=== PATIENT | female | born 1980 | race Caucasian/White ===

== ENCOUNTER → 2018-10-03 10:30 | Outpatient (CLI) | payer BC, SELFPAY ==
--- NOTE | 2018-10-03 10:41 | US_ITS ---
US breast LT complete INDICATION: Nipple discharge ORDERING PHYSICIAN: Stephanie Solis APRN PATIENT AGE: 37 years COMPARISON: None TECHNIQUE: Left breast ultrasound with axilla FINDINGS: No sonographic abnormalities are evident. IMPRESSION: Negative left breast ultrasound. Follow-up suggested as clinically warranted. If there is indeed bloody nipple discharge then, mammography may be of further value. MRI may ultimately be needed if there is persistent nipple discharge A- ultrasound does not exclude the possibility of malignancy. Any palpable nodules should be managed on clinical basis (A letter has been sent to the patient regarding results of the study.)
== END ==
PROVIDERS: PCP Family Medicine; Visit Provider Nurse Practitioner Family
DX: N64.52 Nipple discharge (principal)
CPT/HCPCS: 76641

== ENCOUNTER 2021-10-18 10:10 | Emergency (ER) | payer BC, SELFPAY ==
[2021-10-18 10:20] VITALS: BP 154/91; PULSE 94; RESP 17; TEMP 37; O2SAT 98; BMI 37.2
--- NOTE | 2021-10-18 10:36 | XR_ITS ---
PROCEDURE INFORMATION: Exam: XR Thoracic Spine Exam date and time: 10/18/2021 10:51 AM Age: 40 years old Clinical indication: Pain in thoracic spine; Without myelpathy or radiculopathy; Additional info: Pain, heavy lifting yest TECHNIQUE: Imaging protocol: XR of the thoracic spine. Views: 2 views. COMPARISON: CR CXR CHEST(2 VIEWS-NOT PORTABLE) 02/08/2017 10:54 AM FINDINGS: Bones/joints: Mild changes of disc degeneration at T8-9, T9-10 and T10-11. No evidence of acute osseous injury. Soft tissues: Unremarkable. IMPRESSION: 1. No evidence of acute osseous injury. 2. Multilevel disc degeneration.
--- NOTE | 2021-10-18 10:37 | HMH.EDBACK ---
ED Disposition Clinical Impression: Strain of thoracic back region Disposition: Home, Self-Care Condition on Discharge: Good Instructions: DI for Back Strain or Sprain Additional Instructions: follow up pcp as needed Prescriptions: Cyclobenzaprine HCl [Cyclobenzaprine 10mg Tab*] 10 mg PO TIDP PRN #30 tab PRN Reason: Moderate To Severe Pain Transmission Status: Pending to [facility] Naproxen [Naproxen 500mg tab] 500 mg PO BID PRN #20 tab PRN Reason: Moderate To Severe Pain Transmission Status: Pending to [facility] Referrals: Stephanie Solis APRN [Primary Care Provider] - - Critical Care Critical Care Time: No Attestation: On 10/18/21, the high probability of a clinically significant, sudden or life threatening deterioration of the following system(s) required my full and direct attention, intervention and personal management. The time I documented below is in addition to time spent performing reported procedures but includes the following listed in this critical care notation. Medical Decision Making - Medical Records Medical records reviewed: Yes: I reviewed the patient's medical records. - Connor Inquiry Pt receiving controlled substance: No Vital Signs: 10/18/21 10:20 Temperature 98.6 F Temperature Source Oral Pulse Rate [Left Radial] 94 H Respiratory Rate 17 Blood Pressure [Right Arm] 154/91 H Blood Pressure Mean [Right Arm] 112 02 Sat by Pulse Oximetry 98 Oxygen Delivery Method Room Air Orders (Tests/Meds): ED MEDICATIONS Discontinued Medications Generic Name Dose Route Start Last Admin Trade Name Freq PRN Reason Stop Dose Admin Ketorolac Tromethamine 60 mg 10/18/21 10:31 10/18/21 10:33 Ketorolac 60mg/2ml Vial IM 10/18/21 10:32 60 mg ONCE ONE Administration Orphenadrine Citrate 60 mg 10/18/21 10:31 10/18/21 10:33 Orphenadrine Citrate 60mg/2ml Vial IM 10/18/21 10:32 60 mg ONCE ONE Administration ORDERS Category Date Time Status Thoracic spine 2 views [XR thoracic spine 2V] Stat Exams 10/18/21 10:36 Taken HCG Qualitative, Serum Stat Lab 10/18/21 10:45 Received Back Pain HPI - General Chief Complaint: Back Pain/Injury Stated Complaint: severe back pain Time Seen by Provider: 05/21/22 10:37 Mode of Arrival: Wheelchair Limitations: No Limitations Description of Symptoms (Recalled from ER Triage Doc. by RN): pt to ed c/o back spasms. pt states she was moving heavy equipment yesterday and this morning she started having sudden back spasms. pt states the pain is in her mid back and the pain comes and goes. pt states nothing exacerbates the pain, it comes and goes sporadically. - History of Present Illness HPI Narrative: left periscapular upper back pain , thinks its spasms, poss from lifting bats[place]va yest Onset (ago): day(s) Duration: constant Location: thoracic spine Severity: moderate Quality: sharp Radiation: none Relieving factors: immobilization Exacerbating factors: movement Associated symptoms: denies other symptoms - Related Data Home Medications Medication Instructions Recorded Confirmed esomeprazole magnesium 20 mg 20 mg PO DAILY 06/28/19 08/14/19 capsule,delayed release Previous Rx's Medication Instructions Recorded norethindrone 1 mg-ethinyl 1 tab PO DAILY #28 tab 06/10/20 estradiol 10 mcg (24)-iron 10 mcg(2) tablet norethindrone (contraceptive) 0.35 0.35 mg PO DAILY #28 tab 07/05/20 mg tablet Cyclobenzaprine HCl 10 mg PO TIDP PRN #30 tab 10/18/21 [Cyclobenzaprine 10mg Tab*] Naproxen [Naproxen 500mg tab] 500 mg PO BID PRN #20 tab 10/18/21 Allergies Allergy/AdvReac Type Severity Reaction Status Date / Time amoxicillin [From AMOXIL] Allergy Intermediate I-HIVES Verified 07/05/20 09:58 diphenhydramine Allergy Intermediate HIVE Verified 07/05/20 09:58 [From BENADRYL] Penicillins [PENICILLINS] Allergy Unknown Verified 07/05/20 09:58 [facility] History - Hepatitis A Screen A
--- NOTE | 2021-10-18 10:57 | PC.NURSE ---
patient over to radiology at this time.
--- NOTE | 2021-10-18 11:02 | PC.NURSE ---
pt returing from radiology
[2021-10-18 11:11] LABS: HCG Qualitative, Serum Negative (Negative)
[2021-10-18 11:25] VITALS: BP 138/81; PULSE 90; RESP 18; TEMP 37; O2SAT 99
== END 2021-10-18 11:27 | disposition home or self-care (01) ==
PROVIDERS: Emergency Provider Emergency Medicine; PCP Nurse Practitioner Family
DX: S29.012A Strain of muscle and tendon of back wall of thorax, initial encounter (principal); Z79.1 Long term (current) use of non-steroidal anti-inflammatories (NSAID); Z79.899 Other long term (current) drug therapy; Z88.0 Allergy status to penicillin; Z88.1 Allergy status to other antibiotic agents; Z88.3 Allergy status to other anti-infective agents; Z88.8 Allergy status to other drugs, medicaments and biological substances; X50.0XXA Overexertion from strenuous movement or load, initial encounter
CPT/HCPCS: 72070; 84703; 96372; 99285

== ENCOUNTER → 2022-07-03 11:52 | Outpatient (CLI) | payer BC, SELFPAY ==
[2022-07-03 12:28] LABS: Basophils # 0.1 K/mm3 (0-0.2); Basophils % 0.6 % (0.1-2.0); Eosinophils # 0.1 K/mm3 (0.0-0.4); Eosinophils % 1.3 % (0.1-12.0); Hematocrit 39.3 % (37.0-47.0); Hemoglobin 12.7 g/dL (12.2-16.2); Lymphocytes # 1.6 K/mm3 (0.7-4.5); Lymphocytes % 18.2 % (10-50); Mean Corpuscular HGB Conc 32.2 g/dL (31.8-35.4); Mean Corpuscular Hemoglobin 28.8 pg (27.0-31.2); Mean Corpuscular Volume 89.2 fl (81-99); Mean Platelet Volume 7.9 fl (7.4-10.4); Monocytes # 0.5 K/mm3 (0.1-1.0); Monocytes % 5.6 % (1.7-9.3); Neutrophils # 6.6 K/mm3 (1.8-7.8); Neutrophils % 74.2 % (37.0-80.0); Platelet Count 360 K/mm3 (142-424); Red Blood Count 4.41 M/mm3 (4.20-5.40); Red Cell Distribution Width 14.2 % (11.5-17.5); White Blood Count 8.9 K/mm3 (4.8-10.8)
[2022-07-03 13:09] LABS: Anion Gap 8.6 mEq/L (5-15); Blood Urea Nitrogen 10 mg/dl (7-17); Calcium 8.7 mg/dl (8.4-10.2); Carbon Dioxide 27 mmol/L (22.0-30.0); Chloride 108 mmol/L (98-107); Chol/HDL Ratio 4.2 (1-3.5); Cholesterol 173 mg/dl (140-200); Estimated Glomerular Filt Rate 93 ml/min (>60); GFR (African American) 112 ML/MIN (>60); Glucose 85 mg/dl (74-100); HDL Cholesterol 41 mg/dl (40-60); Potassium 3.6 mmoL/L (3.5-5.1); Sodium 140 mmol/L (136-145); Triglycerides 91 mg/dl (30-150); VLDL Cholesterol 18 mg/dL (0-40)
[2022-07-03 13:25] LABS: Direct LDL Cholesterol 103.29 mg/dL (100-129)
[2022-07-03 13:45] LABS: Thyroid Stimulating Hormone 1.84 uIU/mL (0.465-4.68)
[2022-07-03 17:34] LABS: Hemoglobin A1C 6.3 % (4.0-6.0)
== END ==
PROVIDERS: PCP Nurse Practitioner Family; Visit Provider Obstetrics & Gynecology
DX: Z00.00 Encounter for general adult medical examination without abnormal findings (principal); N92.0 Excessive and frequent menstruation with regular cycle; Z79.899 Other long term (current) drug therapy
CPT/HCPCS: 36415; 80048; 80061; 83036; 84443; 85025

== ENCOUNTER → 2022-11-13 14:03 | Outpatient (CLI) | payer BC, SELFPAY ==
--- NOTE | 2022-11-13 14:16 | US_ITS ---
PROCEDURE: US TRANSVAGINAL CLINICAL INDICATION: amenorrhea COMPARISON: No exams were available for comparison FINDINGS: UTERUS: 7cm x 4cmx 3cm with a combined endometrial thickness of 5.7mm. Within the anterior uterus there are multiple small echogenic foci. These are just superior to the endometrium. The anterior myometrium has a heterogenous appearance LEFT OVARY: 4puk5nzl8.7cm with a volume of 6.7ml. Multiple follicles within the left ovary. The dominant follicle measures 1.2 cm x 1.5 cm x 1.3 cm. RIGHT OVARY: 3cmx 9lft0ea with a volume of 5.6ml. There are multiple small follicles within the right ovary. Both ovaries are seen and appear normal. Doppler flow to both ovaries are seen. There is no fluid in the cul-de-sac. IMPRESSION: 1. The uterus is anteverted and normal in shape and size. 2. The endometrium is thin at 5.7 millimeters. 3. There are echogenic foci within the anterior myometrium. 4. The anterior myometrium has a heterogenous appearance. 5. The ovaries appear normal and both ovaries have multiple small follicles. Dictated by: Tom Pulliam MD 11/15/2022 20:29 Tom Pulliam MD in [place] 11/15/2022 20:29
[2022-11-15 07:26] LABS: FSH 7.1 mIU/mL (.)
== END ==
PROVIDERS: PCP Nurse Practitioner Family; Visit Provider Obstetrics & Gynecology
DX: N91.2 Amenorrhea, unspecified (principal)
CPT/HCPCS: 36415; 76830; 82670; 83001

== ENCOUNTER 2023-07-18 13:19 | Emergency (ER) | payer BC, SELFPAY ==
[2023-07-18 14:15] VITALS: BP 129/73; PULSE 82; RESP 19; TEMP 36.7; O2SAT 98; BMI 39.6
--- NOTE | 2023-07-18 14:29 | ED_ITS ---
Discharge Plan Disposition Patient Disposition: Home, Self-Care Condition: Good Prescriptions Prescriptions: New azithromycin [Zithromax Z-Danish] 250 mg tablet See Rx Instructions .ROUTE .COMPLEX 5 Days Qty: 6 0RF Rx Instructions: For 250 mg dose pack: take 500 mg today (day 1), then 250 mg for 4 days (days 2-5) No Action esomeprazole magnesium [Nexium] 20 mg capsule,delayed release(DR/EC) 20 mg PO DAILY Referrals Follow up/Referrals: Stephanie Solis APRN [Primary Care Provider] - See instructions Activity Restrictions/Add. Instructions Additional Instructions/Restrictions: *Monitor Temp, Over the counter Motrin or Tylenol as directed/as needed Tylenol every 4 hours and Motrin every 6 hours (as long as your family doctor has told you that you can take it) for fever or pain. and straight to ER if unable to lower temp less than 101.0 after medication given Take your medication as prescribed *Sleep elevated *Humidifier/Vaporizer Follow up IMMEDIATELY for new or worsening symptoms or no Noticeable improvement over the next 48-72 hours. 911 for difficulty breathing or swallowing Clinical Impressions Clinical Impression: Otitis media Qualifiers: Otitis media type: unspecified Laterality: right Qualified Code(s): H66.91 - Otitis media, unspecified, right ear Instructions Patient Instructions: Middle Ear Infection Discharge ED Provider: Kylie Ortega [facility] General Stated complaint: Rt ear pain Mode of Arrival: Ambulatory Source of Information: Patient Limitations: No Limitations Time Seen by Provider: 07/18/23 14:29 Description of Symptoms (Recalled from Triage Doc. by RN): Right ear pain HEENT Symptoms (Recalled from RN notes): Yes Resp Symptoms (Recalled from RN notes): No Skin Symptoms (Recalled from RN notes): No MS Symptoms (Recalled from RN notes): No Functional Status (Recalled from RN notes): n/a History of Present Illness Provider Complaint: Patient states that she has been having pain in her right ear for several days states that she tried sweet oil in it but didnt help and today it was still hurting so she came in to get it checked Related Data Home Medications Medication Instructions Recorded Confirmed esomeprazole magnesium 20 mg 20 mg PO DAILY 06/28/19 07/18/23 capsule,delayed release (Nexium) Previous Rx's Medication Instructions Recorded azithromycin 250 mg tablet See Rx Instructions PO .COMPLEX 5 07/18/23 (Zithromax Z-Danish) days #6 tabs Allergies Allergy/AdvReac Type Severity Reaction Status Date / Time amoxicillin [From AMOXIL] Allergy Intermediate I-HIVES Verified 07/18/23 14:28 diphenhydramine Allergy Intermediate HIVE Verified 07/18/23 14:28 [From BENADRYL] Penicillins [PENICILLINS] Allergy Unknown Verified 07/18/23 14:28 Worker's Comp Is this a Worker's Comp case?: No [facility] Disclaimer: The information contained in this section may have been updated after the patient was seen, as this information can be updated by other users. Surgical History History of wisdom tooth extraction Family History Mother Cancer Breast Father Thyroid disorder Other Diabetes Hyperlipidemia Hypertension Social History Smoking Status: Current every day smoker tobacco type: cigarettes packs per day: 1 alcohol intake: never substance use type: denies use current occupational status: employed Travel in the last 8 weeks: None household members: family housing: house ROS Obtained: Yes All systems reviewed & no additional complaints except as documented and Yes Systems reviewed as appropriate & no additional complaints except as documented Constitutional Constitutional: Reports system reviewed and no additional complaints, except as documented and Reports as per HPI ENT Ears, Nose, Mouth, and Throat: Reports system reviewed and no additional complaints, except as documented, Reports as per HPI and Reports otalgia Cardiovascular Cardiovascular: Reports system reviewed and no additional complaints, except as documented and Reports as per HPI Respiratory Respiratory: Reports system reviewed and no additional complaints, except as documented and Reports as per HPI Gastrointestinal Gastrointestingal: Reports system reviewed and no additional complaints, except as documented and as per HPI Physical Exam General General appearance: alert and in no apparent distress Expanded ENT Exam TM/Canal exam: Right TM: erythema and loss of landmarks Respiratory Respiratory exam: Present normal lung sounds bilaterally; Absent respiratory distress or wheezes Cardiovascular Cardiovascular exam: Present regular rate, normal rhythm and normal heart sounds Neurological Exam Neurological exam: Present alert, oriented X3 and normal gait Medical Decision Making Connor Inquiry Pt receiving controlled substance: No Connor was queried for this patient: No Vital Signs: 07/18/23 14:15 Temperature 98.1 F Temperature Source Oral Pulse Rate [Right Radial] 82 Respiratory Rate 19 Blood Pressure [Right Arm] 129/73 Blood Pressure Mean [Right Arm] 91 Blood Pressure Source [Right Arm] Automatic Cuff Blood Pressure Position [Right Arm] Sitting 02 Sat by Pulse Oximetry 98 Oxygen Delivery Method Room Air
[2023-07-18 14:39] VITALS: BP 129/73; PULSE 82; RESP 19; TEMP 36.7; O2SAT 98
== END 2023-07-18 14:39 | disposition home or self-care (01) ==
PROVIDERS: Emergency Provider Nurse Practitioner; PCP Nurse Practitioner Family
DX: H66.91 Otitis media, unspecified, right ear (principal); F17.210 Nicotine dependence, cigarettes, uncomplicated
CPT/HCPCS: 99204; 99212; G0463